=== PATIENT | male | born 1960 | race Caucasian/White ===

== ENCOUNTER 2020-10-29 14:48 | Emergency (ER) | payer SELFPAY ==
[~2020-10-29] VITALS: Ht 175.3 cm; Wt 66.8 kg
--- NOTE | 2020-10-29 15:44 | RAD ---
EXAM: Left wrist, 3 views. HISTORY: Laceration. COMPARISON: None. FINDINGS: 3 views of the left wrist are obtained. There is no acute fracture, dislocation or subluxat ion. There is moderate subchondral sclerosis and spurring involving the first carpometacarpal joint. There is a punctate radiodense the along the skin of the radial aspect of the wrist. No subcutaneous foreign body is seen. IMPRESSION: 1. Moderate first carpometacarpal joint osteoarthritis. 2. No acute osseous finding. Electronically signed by: Deb Gregorio MD (10/29/2020 3:42 PM) [id number]
[2020-10-29] MEDS: DIPH,PERTUSS(ACELL),TET VAC/PF 0.5 ML SYRINGE. VAX IM ONE (16:08)
[2020-10-29] MEDS: LIDOCAINE WITH 8.4% SOD BICARB 3 ML DISP.SYRIN. INJ ONE (16:09)
--- NOTE | 2020-10-29 16:33 | PHYS DOC ---
Past Medical History Past Medical History: Asthma Past Surgical History: Other Additional Past Surgical Histo: hernia x 2, sinus polyp surgery Smoking Status: Current Some Day Smoker Alcohol Use: Heavy Additional Information: reports drinking 1-2 beers daily General Adult EDM: Chief Complaint: TRAUMA ALERT HPI: HPI: Patient is a 59 year old right-handed male with history of asthma presenting today with left wrist laceration, patient states a piece of metal was about to fall and he tried catching it and it cut him to the left wrist. Review of Systems: Review of Systems: Constitutional: Denies fever or chills. [] Musculoskeletal: Denies back pain or joint pain. [] Integument: Reports left wrist laceration Neurologic: Denies headache, focal weakness or sensory changes. [] Psychiatric: Denies depression or anxiety. [] Heart Score: C/O Chest Pain: N/A Risk Factors: Risk Factors: DM, Current or recent (<one month) smoker, HTN, HLP, family history of CAD, obesity. Risk Scores: Score 0 - 3: 2.5% MACE over next 6 weeks - Discharge Home Score 4 - 6: 20.3% MACE over next 6 weeks - Admit for Clinical Observation Score 7 - 10: 72.7% MACE over next 6 weeks - Early Invasive Strategies Current Medications: Current Medications Medications (Trade) Dose Ordered Sig/Fuad Start Time Stop Time Status Last Admin Dose Admin Diphtheria/ Tetanus/Acell Pertussis (ADACEL TDap SYRINGE) 0.5 ml ONCE ONCE 10/29/20 15:30 10/29/20 15:38 DC 10/29/20 16:08 0.5 ML Lidocaine HCl (Buffered Lidocaine 1%) 3 ml 1X ONCE 10/29/20 15:30 10/29/20 15:38 DC 10/29/20 16:09 3 ML Allergies: Allergies: Allergies Coded Allergies Type Severity Reaction Last Updated Verified aspirin Adverse Reaction Intermediate nausea, vomiting, worsens astham 10/29/20 Yes Physical Exam: PE: Constitutional: Well developed, well nourished, no acute distress, non-toxic appearance. [] Skin: Left lateral wrist with a laceration approximately 2.5 cm, there is no obvious tendon involvement but patient reports difficulty extending the left thumb. Adequate flexion of the left thumb. Full range of motion to the rest of the fingers. Adequate radial, medial, ulnar sensation to the left fingers. +2 left radial pulse. Cap refill less than 2 seconds in left fingers Back: No tenderness, no CVA tenderness. [] Extremities: No tenderness, no cyanosis, no clubbing, ROM intact, no edema. [] Neurologic: Alert and oriented X 3, normal motor function, normal sensory function, no focal deficits noted. [] Psychologic: Affect normal, judgement normal, mood normal. [] Current Patient Data: Vital Signs: Vital Signs Date Time Temp Pulse Resp B/P (MAP) Pulse Ox O2 Delivery O2 Flow Rate FiO2 10/29/20 14:55 98.4 74 20 214/94 (134) 99 Room Air 98.4 EKG: EKG: [] Radiology/Procedures: Radiology/Procedures: []PROCEDURE: WRIST 3V LEFT EXAM: Left wrist, 3 views. HISTORY: Laceration. COMPARISON: None. FINDINGS: 3 views of the left wrist are obtained. There is no acute fracture, dislocation or subluxation. There is moderate subchondral sclerosis and spurring involving the first carpometacarpal joint. There is a punctate radiodense the along the skin of the radial aspect of the wrist. No subcutaneous foreign body is seen. IMPRESSION: 1. Moderate first carpometacarpal joint osteoarthritis. 2. No acute osseous finding. Electronically signed by: Deb Gregorio MD (10/29/2020 3:42 PM) [id number] DICTATED and SIGNED BY: DEB GREGORIO MD DATE: 10/29/20 [id number] Laceration/Wound Repair Wound Location: Left wrist laceration Wound's Depth, Shape: Horizontal Wound Length (cm): Approximately 2.5 cm Wound Explored: clean Irrigated w/ Saline (ccs): 200 Betadine Prep?: y Anesthesia: 1% of buffered lidocaine Volume Anesthetic (ccs): 3 mL Wound Repaired With: Ethilon Suture Size/Type: 4.0/interrupted sutures Number of Sutures: 5 Progress : Wound was covered with nonstick dressing Course & Med Decision Making: Course & Med Decision Making Pertinent Labs and Imaging studies reviewed. (See chart for details) This is a 59-year-old male patient presented to the ED today with left wrist laceration, patient has a laceration roughly 2.5 cm. There is no obvious tendon involvement but patient expressing difficulty extending the left thumb. Informed patient i have to call a couple hospitals in [facility] and get a hand surgeon to talk to and see if they want us to close the wound or have patient go and get seen today. Patient stated he prefers i close the laceration and he can follow-up as an outpatient by himself with a hand surgeon in the clinic. Tetanus was updated, left wrist x-rays are negative for any acute findings, laceration was closed in the ED as noted in procedures. Wound care instructions and return precautions provided. Blood pressure was in the 180s over high 80s, patient reports whitecoat syndrome. He states he has no history of hypertension and has a PCP he follows up with. He has no chest pain or shortness of breath. He will follow-up with his own doctor Whit Disclaimer: Whit Disclaimer: This electronic medical record was generated, in whole or in part, using a voice recognition dictation system. Departure Departure Impression: Primary Impression: Laceration of left wrist Qualified Codes: S61.512A - Laceration without foreign body of left wrist, initial encounter Additional Impression: High blood pressure Qualified Codes: I10 - Essential (primary) hypertension Disposition: HOME / SELF CARE / HOMELESS Condition: STABLE Referrals: MICHELLE CRANDALL MD (PCP) Please follow-up with a hand surgeon of your own choice. Please follow-up with your primary care doctor for blood pressure check and management Patient Instructions: Hypertension, Laceration Care, Adult Additional Instructions: You have a laceration to the left wrist that was closed with stitches. Keep the area clean and dry. You can remove the dressing in 24 hours. Apply Neosporin to the area twice a day. You can wash the area once or twice a day starting tomorrow. Keep the area open to air if not bleeding or draining. Monitor the area for any signs of infection including but not limited to increased redness, warmth, yellow drainage and return to the ED if they occur. Follow-up with a hand surgeon of your choice ADRYAN AGUERO APRN Oct 29, 2020 16:33
[2020-10-29 16:48] VITALS: BP 177/90
== END 2020-10-29 16:49 | disposition home or self-care (01) ==
LOC: ER 14:48
DX: S61.512A Laceration without foreign body of left wrist, initial encounter (principal); I10 Essential (primary) hypertension; J45.909 Unspecified asthma, uncomplicated; F17.200 Nicotine dependence, unspecified, uncomplicated; F10.20 Alcohol dependence, uncomplicated; Y90.9 Presence of alcohol in blood, level not specified; Z88.6 Allergy status to analgesic agent; Y28.8XXA Contact with other sharp object, undetermined intent, initial encounter; Y93.89 Activity, other specified; Y92.89 Other specified places as the place of occurrence of the external cause; Y99.8 Other external cause status
CPT/HCPCS: 12001; 73120; 90471; 90715; 99285; J3490